=== PATIENT | female | born 1975 | race Caucasian/White ===

== ENCOUNTER 2017-10-10 01:51 | Emergency (ER) | payer SELFPAY ==
[~2017-10-10] VITALS: Ht 177.8 cm; Wt 98.4 kg
[~2017-10-10 01:51] MED LIST: CEPHALEXIN500 MG OR; MEDDOSEPAK PO; PROAIR HFA IN; ZITHROMAX250 MG PO
[2017-10-10] MEDS ORDERED: VYVANSE40 MG PO (02:36)
[2017-10-10] MEDS ORDERED: LORTAB 1010 MG PO (02:58)
[2017-10-10] MEDS ORDERED: AMOXICILLIN500 MG PO (02:58)
[2017-10-10 03:15] VITALS: BP 162/88
== END 2017-10-10 03:15 | disposition home or self-care (01) | DRG 159 ==
LOC: ED 01:51
DX: K04.7 Periapical abscess without sinus (principal); F90.9 Attention-deficit hyperactivity disorder, unspecified type; F17.210 Nicotine dependence, cigarettes, uncomplicated

== ENCOUNTER 2019-07-21 09:34 | Emergency (ER) | payer SELFPAY ==
[~2019-07-21 09:34] MED LIST changes: +AMOXICILLIN500 MG PO; +LORTAB 1010 MG PO; +VYVANSE40 MG PO
[2019-07-21] MEDS ORDERED: BACTRIM DS1 TAB PO (10:18)
[2019-07-21 11:00] VITALS: BP 121/76
== END 2019-07-21 11:00 | disposition home or self-care (01) | DRG 603 ==
LOC: ED 09:34
PROC: 0H9GXZZ Drainage of Left Hand Skin, External Approach (ICD-10-PCS; principal; 2019-07-21)
DX: L03.012 Cellulitis of left finger (principal); F17.200 Nicotine dependence, unspecified, uncomplicated